=== PATIENT | female | born 1985 | race Caucasian/White ===

== ENCOUNTER 2016-11-09 15:44 | Emergency (ER) | payer OTHER, MEDICAID ==
[2016-11-09 15:50] VITALS: RESP 18; O2SAT 96
--- NOTE | 2016-11-09 16:21 | EDPHY ---
H & P Time Seen by Provider: 11/09/16 15:52 HPI/ROS: CHIEF COMPLAINT: Right chin laceration HISTORY OF PRESENT ILLNESS: 31-year-old female history of depression, visual impairment, arrives via private vehicle complaining of a self-inflicted right mandible laceration last evening. States that she is trying to cut a scar out. She placed a safety pin through the area and went to her therapist's office today for a regularly scheduled appointment and states that her therapist told to come to the ER for evaluation of the laceration from a medical perspective. The patient adamantly denies suicidal or homicidal ideation. PHYSICAL EXAM (Prior to examination, patient consented to physical exam, hands were washed and my usual and customary physical exam procedures followed) 1) GENERAL: Well-developed, well-nourished, alert and oriented. Appears to be in no acute distress. 2) HEAD: Normocephalic 3) HEENT: sclera anicteric 4) LUNGS: Breathing comfortably. 5) SKIN: On the right mandible the patient has a Band-Aid in place which is removed revealing a safety pin through the skin holding skin edges together. This is removed revealing a a 1 cm x 1 cm superficial area of skin avulsion. Not infected. The skin margins do not aligned well this is not a linear laceration. No no signs of infection. 6) MUSCULOSKELETAL: the mandible is nontender. Smoking Status: Never smoked Constitutional: Initial Vital Signs Temperature (C) 36.4 C 11/09/16 15:47 Heart Rate 79 11/09/16 15:47 Respiratory Rate 18 11/09/16 15:47 Blood Pressure 121/79 H 11/09/16 15:47 O2 Sat (%) 96 11/09/16 15:47 Allergies/Adverse Reactions: codeine Allergy (Unknown, Verified 04/24/13 21:09) morphine Allergy (Unknown, Verified 04/24/13 21:09) Home Medications: Medication Instructions Recorded Supplements 04/24/13 Effexor 11/09/16 [place] Carbonate ER 11/09/16 OXcarbazepine 11/09/16 Trileptal 11/09/16 MDM/Departure - MDM Procedures: Patient's wound has been cleaned and dressed. Will be allowed to heal via secondary intention. ED Course/Re-evaluation: 4:15 p.m.: I consulted with the patient's therapist, Adolfo Garcia, phone , home informs me that the patient had just been in her office this afternoon and she recommended patient come to the ER for evaluation of the laceration. Specifically inquired whether her therapist any concerns about the patient's safety, suicidal ideation she adamantly states that she did not identify any or red flags. In interviewing the patient the patient is adamant that she denies suicidal ideation. Discussed case with Dr Mcnally in Er. - Depart Disposition: Home, Routine, Self-Care Clinical Impression: Chin laceration Qualifiers: Encounter type: initial encounter Qualified Code(s): S01.81XA - Laceration without foreign body of other part of head, initial encounter Condition: Good Instructions: Laceration (ED) Additional Instructions: Return to the ER if you develop redness, swelling, discharge, warmth to the wound, or any other symptoms that concern you. Referrals: Veronica Kay MD [Primary Care Provider] - 1-2 days without fail
[2016-11-09 17:04] VITALS: BP 112/78; PULSE 71; TEMP 98.1
== END 2016-11-09 17:04 | disposition home or self-care (01) ==
DX: S01.81XA Laceration without foreign body of other part of head, initial encounter (principal); W45.8XXA Other foreign body or object entering through skin, initial encounter

== ENCOUNTER 2018-07-03 20:13 | Emergency (ER) | payer OTHER, MEDICAID ==
[2018-07-03 20:20] VITALS: BP 118/81
[2018-07-03] MEDS ORDERED: SILVER NITRATE APPLICATOR 1 APPL TP ONE ×2 (20:28→20:57)
--- NOTE | 2018-07-03 20:36 | EDPHY ---
H & P Stated Complaint: self inflicted chest wound 3 days old wont stop bleeding Source: Patient Exam Limitations: No limitations - Personal History LMP (Females 10-55): 1-7 Days Ago Current Tetanus/Diphtheria Vaccine: Unsure Current Tetanus Diphtheria and Acellular Pertussis (TDAP): Unsure - Medical/Surgical History Hx Asthma: Yes Hx Chronic Respiratory Disease: Yes Hx Diabetes: Yes Hx Cardiac Disease: Yes Hx Renal Disease: Yes Hx Cirrhosis: Yes Hx Alcoholism: Yes Hx HIV/AIDS: Yes Hx Splenectomy or Spleen Trauma: Yes Other PMH: PMH: depression, sz, blind - Social History Smoking Status: Never smoked Time Seen by Provider: 07/03/18 20:22 HPI/ROS: HPI: This is a 33-year-old female who presents with Chief Complaint: self inflicted chest wound 3 days old wont stop bleeding Location: Left chest wall Quality: Bleeding Duration: 3 days Signs and Symptoms:+ bleeding, no shortness of breath, no redness, no warmth, no discharge Timing: Intermittent episodes Severity: Mild Context: Patient has a history of depression with previous suicide attempt in 2013 presents from psychiatric facility with request for wound care. Patient had a self-inflicted wound from scissors approximately 3 days ago. The facility has been applying pressure dressing without being able to stop the bleeding. Patient reports that her tetanus is current. LMP 1-7 days ago. She is closely followed by her psychiatrist and was seen by him today. She denies any suicidal ideation, homicidal ideation, paranoia, hallucinations. Modifying Factors: Pressure dressing Comment: ROS: A comprehensive 10 system review of systems is otherwise negative aside from elements mentioned in the history of present illness. MEDICAL/SURGICAL/SOCIAL HISTORY: Medical history: Depression, seizure disorder, legally blind Surgical history: Denies Social history: Disabled. Family history noncontributory. CONSTITUTIONAL: Polite and cooperative, adult white female, service dog at bedside, awake and alert, no obvious distress HEENT: Atraumatic and normocephalic, PERRL, EOMI. Nares patent; no rhinorrhea; no nasal mucosal edema. Tympanic membranes clear. Oropharynx clear, no exudate and moist pink mucosa. Airway patent. No lymphadenopathy. No meningismus. Cardiovascular: Normal S1/S2, regular rate, regular rhythm, without murmur rub or gallop. PULMONARY/CHEST: Symmetrical and nontender. Clear to auscultation bilaterally. Good air movement. No accessory muscle usage. ABDOMEN: Soft, nondistended, nontender, no rebound, no guarding, no peritoneal signs, no masses or organomegaly. No CVAT. EXTREMITIES: 2/2 pulses, strength 5/5, no deformities, no clubbing, no cyanosis or edema. NEUROLOGICAL: no focal neuro deficits. GCS 15. SKIN: Warm and dry, left chest wall shows pinpoint superficial lacerations x3. 1 superficial laceration has an area with superficial capillary that has scant amount of active bleeding. no erythema. no rash. Good capillary refill. (Britney Nesbtit) Constitutional: Initial Vital Signs Temperature (C) 36.6 C 07/03/18 20:17 Heart Rate 73 07/03/18 20:17 Respiratory Rate 16 07/03/18 20:17 Blood Pressure 118/81 H 07/03/18 20:17 O2 Sat (%) 100 07/03/18 20:17 O2 Delivery Mode Room Air Allergies/Adverse Reactions: codeine Allergy (Unknown, Verified 04/24/13 21:09) morphine Allergy (Unknown, Verified 04/24/13 21:09) Home Medications: Medication Instructions Recorded Supplements 04/24/13 Effexor 11/09/16 [place] Carbonate ER 11/09/16 OXcarbazepine 11/09/16 Trileptal 11/09/16 Cephalexin [Keflex (*)] 500 mg PO TID #21 cap 07/03/18 Medical Decision Making Procedures: Procedure: Wound bleeding control After verbal consent was obtained, the patient was anesthetized with 4 mL of 1% lidocaine with epinephrine. The superficial bleeding on left chest wall was identified. The patient was treated with silver nitrate, Surgifoam and 4 x 4 gauze with [place] pressure dressing. Following the procedure the patient was re- examined and the bleeding was well controlled. The patient tolerated the procedure well. The procedure was performed by myself. (Britney Nesbitt) ED Course/Re-evaluation: Patient presents with concerns of continued bleeding from self-inflicted wound on her left chest wall approximately 3 days ago. She is currently in an inpatient psychiatric program, staying at the facility and is being closely followed by her psychiatrist including today. Patient does not meet M1 hold or detainer criteria. Bleeding was stopped using silver nitrate, surgifoam and pressure dressing. Given Keflex and prescription for same for antibiotic prophylaxis. Tetanus is up-to-date. Verbal and written wound care instructions provided. This patient was seen under the supervision of my secondary supervising physician. I evaluated care for this patient independently. Discussed this patient with Dr. Pak. (Britney Nesbitt) I did not see this patient while she was in the emergency department. However her care was discussed with the PA while the patient was in the department. I agree with treatment plan and management (Polo Pak) Differential Diagnosis: Differential diagnosis includes but is not limited to vascular injury, laceration, cellulitis. (Britney Nesbitt) - Data Points Medications Given: Discontinued Medications Cephalexin (Keflex 500 Mg Prepack#4) 1 btl TAKEHOME EDNOW ONE PRN Reason: Protocol Stop: 07/03/18 20:39 Last Admin: 07/03/18 20:59 Dose: 1 btl Silver Nitrate/Potassium Nitrate (Silver Nitrate Applicator) 1 each TP EDNOW ONE Stop: 07/03/18 20:58 Last Admin: 07/03/18 20:59 Dose: 1 each Departure - Departure Disposition: Home, Routine, Self-Care Clinical Impression: Self-inflicted injury, Bleeding from wound Condition: Good Instructions: Postoperative Bleeding (ED) Additional Instructions: Keep the dressing dry and in place for 48 hours. After 48 hours, you may remove the dressing; wash the site daily with mild soap and water; then pat dry. Apply clean sterile dressing daily until fully healed. Take Tylenol 650 mg every 4 hours and/or Ibuprofen 600 mg every 8 hours with food as needed for pain. Take Keflex as directed to prevent infection. Return to the ER immediately if you experience redness, red streaks, have fevers /chills, flu like symptoms, limited range of motion, or any other symptoms that concern you. Referrals: Veronica Kay MD [Primary Care Provider] - As per Instructions PCP Not In,Dictionary [Medical Doctor] - As per Instructions (Psychiatrist) Prescriptions: Cephalexin [Keflex (*)] 500 mg PO TID #21 cap
[2018-07-03] MEDS ORDERED: CEPHALEXIN 500MG PREPACK#4 BTL TAKEHOME ONE (20:38)
== END 2018-07-03 21:23 | disposition home or self-care (01) ==
PROC: 0HQ5XZZ Repair Chest Skin, External Approach (ICD-10-PCS; principal; 2018-07-03)
DX: S21.139A Puncture wound without foreign body of unspecified front wall of thorax without penetration into thoracic cavity, initial encounter (principal); X78.8XXA Intentional self-harm by other sharp object, initial encounter; R58 Hemorrhage, not elsewhere classified; H54.8 Legal blindness, as defined in USA; F32.9 Major depressive disorder, single episode, unspecified; Y92.238 Other place in hospital as the place of occurrence of the external cause

== ENCOUNTER → 2018-10-20 | Outpatient (CLI) | payer OTHER, MEDICAID | LOC: FIMAGING 13:37 | PROVIDERS: ATTEND Family Medicine | DX: Z13.820 Encounter for screening for osteoporosis (principal); N95.8 Other specified menopausal and perimenopausal disorders; F50.9 Eating disorder, unspecified; E03.9 Hypothyroidism, unspecified ==